=== PATIENT | female | born 1955 | race Caucasian/White ===

== ENCOUNTER → 2023-07-31 09:50 | Outpatient (REF) | payer OTHER, SELFPAY | LOC: HWRAD 09:50 | PROVIDERS: ATTENDING PHYSICIAN Nurse Practitioner Family | DX: R22.1 Localized swelling, mass and lump, neck (principal) | CPT/HCPCS: 76536 ==

== ENCOUNTER → 2023-08-07 17:11 | Outpatient (REF) | payer OTHER, SELFPAY | LOC: HWRAD 17:11 | PROVIDERS: ATTENDING PHYSICIAN Nurse Practitioner Family | DX: R07.81 Pleurodynia (principal) | CPT/HCPCS: 71111 ==

== ENCOUNTER → 2023-08-19 15:00 | Outpatient (REF) | payer OTHER, SELFPAY | LOC: HWRAD 15:00 | PROVIDERS: ATTENDING PHYSICIAN Nurse Practitioner Family; FAMILY PHYSICIAN Internal Medicine Geriatric Medicine | DX: M81.0 Age-related osteoporosis without current pathological fracture (principal) | CPT/HCPCS: 77080 ==

== ENCOUNTER → 2023-10-15 12:16 | Outpatient (REF) | payer OTHER, SELFPAY | LOC: HWRAD 12:16 | PROVIDERS: ATTENDING PHYSICIAN Internal Medicine Geriatric Medicine | DX: R61 Generalized hyperhidrosis (principal); J84.9 Interstitial pulmonary disease, unspecified | CPT/HCPCS: 71260; 74177; Q9967 ==

== ENCOUNTER → 2024-07-15 11:43 | Outpatient (REF) | payer OTHER, MEDICARE, SELFPAY | LOC: HWWDC 11:43 | PROVIDERS: ATTENDING PHYSICIAN Internal Medicine Geriatric Medicine; REFERRING PHYSICIAN Nuclear Medicine Nuclear Cardiology | DX: R06.02 Shortness of breath (principal); Z12.31 Encounter for screening mammogram for malignant neoplasm of breast | CPT/HCPCS: 77063; 77067; 93306 ==

== ENCOUNTER → 2025-01-26 13:10 | Outpatient (REF) | payer OTHER, SELFPAY | LOC: RAD 13:10 | PROVIDERS: ATTENDING PHYSICIAN Nurse Practitioner Adult Health | DX: R60.0 Localized edema (principal) | CPT/HCPCS: 93971 ==

== ENCOUNTER → 2025-04-26 11:07 | Outpatient (REF) | payer OTHER, SELFPAY | LOC: HWRAD 11:07 | PROVIDERS: ATTENDING PHYSICIAN Internal Medicine Geriatric Medicine | DX: M81.0 Age-related osteoporosis without current pathological fracture (principal); M41.35 Thoracogenic scoliosis, thoracolumbar region | CPT/HCPCS: 73502 ==

== ENCOUNTER 2025-05-15 22:07 | Emergency (ER) | payer OTHER, SELFPAY ==
[2025-05-15 22:07] VITALS: BMI 23.9
[2025-05-15 22:10] VITALS: BP 149/85
[2025-05-15 22:27] VITALS: BP 147/68
--- NOTE | 2025-05-15 22:37 | ED.GENMED ---
History of Present Illness
<ZABRINA Miller - Last Filed: 05/16/25 09:09>
General
Chief Complaint: Fall
Source: patient
Exam Limitations: none
Time Seen by Provider: 05/15/25 22:16
Nursing documentation reviewed up to this point in time: agreed with
History of Present Illness
History of Present Illness:
Patient is a 70-year-old female who presents to the ER for evaluation of fall. Patient fell at 5 [address] in a [address] lot. She describes mechanical fall tripped on a curb and landed face forward. She had her nose. She was able to get up. She is not
on blood thinners. She denies loss of consciousness. She denies any headache. She complains of soreness to her nose with an abrasion. Her last tetanus was over 11 years old. She complains of right knee/lower leg discomfort mild right sided low
back discomfort. She reports her nose did bleed but has since resolved. no other injuries.
Past History
<ZABRINA Miller - Last Filed: 05/16/25 09:09>
Past History
ED Past Medical History: Hypothyroidism, Psychiatric (Depression) and Other (Interstitial lung disease, Bronchiectasis, Ulcers)
ED Past Surgical History: Tonsilectomy and Other (Nasal sx)
Social History
Tobacco: 2nd hand smoke exposure
Alcohol: None
Personal:
Living: with family
Phy Exam
<ZABRINA Miller - Last Filed: 05/16/25 09:09>
General Physical Exam
General Presentation: no apparent distress
General age: appears stated age
General Skin: warm and dry
General Habitus: normal
General Mental: alert
General Hydration: appears well hydrated
ENT Exam
ENT Exam: EOMI and other (+ abrasion /swelling to nose ; dried blood in b/l nares )
Eye Exam
Eye Exam: PERRL and EOMI
Eye Exam General: PERRL: bilateral and EOM intact: bilateral
Pupil Exam: Bilateral: round and reactive
Neurological Exam
Neurological Exam: alert, oriented x3, no motor deficits and no sensory deficits
Musculoskeletal Exam
Musculoskeletal Exam: full ROM and other (rle with strong pulses mild swelling to knee with mild ecchymosis mild anterior tenderness no swelling to lower leg mildly tender , no c spine tenderness)
Skin Exam
Skin Exam: normal color and warm/dry
Psychiatric Exam
Psychiatric Exam: normal mood/affect
Course
<ZABRINA Miller - Last Filed: 05/16/25 09:09>
Orders/Labs/Results
Orders:
Orders
05/15/25 22:36
CT Cervical Spine W/o Iv Contr Urgent
Comment:
Reason For Exam: trauma
CT Facial Bones W/o Iv Contras Urgent
Comment:
Reason For Exam: trauma
CT Head W/o Iv Contrast Urgent
Comment:
Reason For Exam: trauma
Knee, Right 4 or More Views [CR Knee- Right 4 Or More View*] Urgent
Comment:
Reason For Exam: trauma
Tib/Fib, Right 2 View [CR Leg Tibia/fibula Right 2 Vw] Urgent
Comment:
Reason For Exam: trauma
05/15/25 22:37
Tetanus/Diphth/Acelpertussis [Adacel] 0.5 ml IM .ONCE ONE
Vital Signs
Initial and Last Documented VS:
Initial Vital Signs
Temp Pulse Resp BP Pulse Ox
97.8 F 100 20 149/85 100
05/15/25 22:10 05/15/25 22:10 05/15/25 22:10 05/15/25 22:10 05/15/25 22:10
Last Documented Vital Signs
Temp Pulse Resp BP Pulse Ox
97.8 F 100 20 147/68 100
05/15/25 22:10 05/15/25 22:10 05/15/25 22:10 05/15/25 22:27 05/15/25 22:39
<Abdirahman Thacker DO - Last Filed: 05/16/25 00:31>
Orders/Labs/Results
Orders:
Orders
05/15/25 22:36
CT Cervical Spine W/o Iv Contr Urgent
Comment:
Reason For Exam: trauma
CT Facial Bones W/o Iv Contras Urgent
Comment:
Reason For Exam: trauma
CT Head W/o Iv Contrast Urgent
Comment:
Reason For Exam: trauma
Knee, Right 4 or More Views [CR Knee- Right 4 Or More View*] Urgent
Comment:
Reason For Exam: trauma
Tib/Fib, Right 2 View [CR Leg Tibia/fibula Right 2 Vw] Urgent
Comment:
Reason For Exam: trauma
05/15/25 22:37
Tetanus/Diphth/Acelpertussis [Adacel] 0.5 ml IM .ONCE ONE
Vital Signs
Initial and Last Documented VS:
Initial Vital Signs
Temp Pulse Resp BP Pulse Ox
97.8 F 100 20 149/85 100
05/15/25 22:10 05/15/25 22:10 05/15/25 22:10 05/15/25 22:10 05/15/25 22:10
Last Documented Vital Signs
Temp Pulse Resp BP Pulse Ox
97.8 F 100 20 147/68 100
05/15/25 22:10 05/15/25 22:10 05/15/25 22:10 05/15/25 22:27 05/15/25 22:39
<ZABRINA Miller - Last Filed: 05/16/25 09:09>
MDM/Problems Addressed
Differential Diagnosis Includes:
Not limited to head injury, nasal contusion abrasion fracture , knee/leg fracture verse contusion
MDM/Problems Addressed:
Patient describes a mechanical fall at 5 PM landed on her nose sustaining an abrasion to her nose nose did bleed however resolved prior to arrival no blood thinners. Patient denies any headache. CAT scans ordered of head neck and facial bones.
She also claims mild right sided knee discomfort lower leg. Will check x-rays though likely contusions. She has a normal neurologic exam and is no acute distress well-appearing. Care patient this time transferred to Dr. Thacker([id number])
<ZABRINA Miller - Last Filed: 05/16/25 09:09>
*Radiology
Radiology exam reviewed: radiology read reviewed
*Pulse Oximetry
SaO2: 100
Oxygen Mode of Delivery: Room air
Patient hypoxic: no
*Critical Care Note
Total Time (30-74mins, 75-104mins- exclusive of procedures): Not Applicable
ED Attending Note
<ZABRINA Miller - Last Filed: 05/16/25 09:09>
-
Portions of this chart may have been created with voice recognition software.� Occasional wrong word or��sound alike� substitutions may have occurred due to the inherent limitations of voice recognition software.
<Abdirahman Thacker DO - Last Filed: 05/16/25 00:31>
ED Attending Note
Patient seen and examined by attending physician: Yes
I performed the substantive portion of visit, reviewed & personally made and approve the management plan that is documented in note by myself or DIMPLE.: Yes
ED Attending Note:
I have seen and evaluated the patient with a [id number] encounter. I have spoken to the advance practicer provider and involved in the medical history, the physical exam, medical decision making.
Evaluation and management service: agree unless noted differently below.
Results interpretation: agree unless noted differently below.
Focused HPI: 70-year-old female presenting with a trip and fall. Patient did injure her nose and her right knee.
Physical exam: Abrasion to bridge of nose. No septal hematoma. Mild swelling to anterior right knee
Medical Decision Making: CT maxillofacial and head negative. X-rays negative for acute fracture. Patient feels comfortable going home
Discharge Plan
Departure
Patient Disposition: Home (Routine Discharge)
Date of Disposition: 05/16/25
Time of Disposition: 00:31
Patient with high blood pressure during this ER visit?: Yes
Condition: Fair
Covid-19: Not Applicable
Discharge Problem:
Contusion of nose, Abrasion, Head injury
Instructions: Head injury in adults, Contusion (DC), Skin Abrasions (DC)
Referrals:
Epi Hanson MD [Family Provider, Internal Medicine]
Activity Restrictions/Additional Instructions:
As discussed wash abrasions with soap and water twice a day apply small layer of antibiotic ointment to the area. You may take Tylenol for pain. You may ice the affected areas of the next several days. Follow-up closely with your family doctor
return if any worsening of symptoms.
Interventions
Interventions:
*Risk Screen - Suicide Last Done: 05/15/25 22:08
*General Assessment Last Done: 05/15/25 22:08
*Neglect/Abuse Screening Last Done: 05/15/25 22:08
*ED- Fall Risk Assessment Last Done: 05/15/25 22:37
*ED COVID-19 Vaccine History Last Done: 05/16/25 01:05
*ED Influenza Vaccine History Last Done: 05/16/25 01:05
*Nursing Disposition Last Done: 05/16/25 01:05
ED-Musculoskeletal Assessment Last Done: 05/15/25 22:29
ED- Neurological Assessment Last Done: 05/15/25 22:29
ED-Skin Assessment Last Done: 05/15/25 22:29
Discharge Date and Time
Discharge Date/Time: 05/16/25 01:06
Print Language: [id number]
[2025-05-15] MEDS: ADACEL 0.5 ML IM (22:44)
== END 2025-05-16 01:06 | disposition home or self-care (01) ==
LOC: EMR 22:07
PROVIDERS: EMERGENCY PHYSICIAN Student in an Organized Health Care Education/Training Program; FAMILY PHYSICIAN Internal Medicine Geriatric Medicine
DX: S00.33XA Contusion of nose, initial encounter (principal); S80.01XA Contusion of right knee, initial encounter; S00.31XA Abrasion of nose, initial encounter; W10.1XXA Fall (on)(from) sidewalk curb, initial encounter; E03.9 Hypothyroidism, unspecified; Z77.22 Contact with and (suspected) exposure to environmental tobacco smoke (acute) (chronic); Z23 Encounter for immunization
CPT/HCPCS: 90471; 99284; 70450; 70486; 72125; 73564; 73590; 90715

== ENCOUNTER → 2025-06-10 15:05 | Outpatient (REF) | payer OTHER, SELFPAY | LOC: RCS 15:05 | PROVIDERS: ATTENDING PHYSICIAN Nurse Practitioner Family | DX: R42 Dizziness and giddiness (principal) | CPT/HCPCS: 93005 ==

== ENCOUNTER → 2025-06-21 15:08 | Outpatient (REF) | payer OTHER, SELFPAY | LOC: RAD 15:08 | PROVIDERS: ATTENDING PHYSICIAN Nurse Practitioner Family; FAMILY PHYSICIAN Internal Medicine Geriatric Medicine | DX: R42 Dizziness and giddiness (principal) | CPT/HCPCS: 70450; 93880 ==